=== PATIENT | female | born 1995 | race Caucasian/White ===

== ENCOUNTER 2016-03-30 21:30 | Observation (INO) ==
[2016-03-30 22:52] LABS: Bilirubin,Urine Negative (Negative); Blood,Urine Negative (Negative); Clarity,Urine Clear (Clear); Color,Urine Yellow (Yellow); Glucose,Urine (UA) Normal (Normal); Ketones,Urine Negative (Negative); Leukocyte Esterase,Urine Negative (Negative); Nitrite,Urine Negative (Negative); Protein,Urine 30 mg/dL (Neg-Trace); Specific Gravity,Urine > 1.030 (1.010-1.025); Urobilinogen,Urine Normal (Normal)
[2016-03-30 22:53] LABS: Bacteria,Urine Many per hpf (None-Few); Hyaline Casts,Urine Few per lpf (None-Few); RBC,Urine 0-3 per hpf (0-3); Squamous Epithelial Cell,Urine Many per lpf (None-Few)
--- NOTE | 2016-03-31 06:10 | OB/GYN Progress Note ---
Date of Encounter: 03/31/16 Time of Encounter: 06:07 (Triage by RN) - Assessment and Plan (1) 20 weeks gestation of Status: Acute (2) RUQ pain Status: Acute Objective - Vital Signs Vital Signs: Intake and Output 03/30/16 03/30/16 03/31/16 15:59 23:59 07:59 Other: Weight 69.853 kg - Labs Labs: Abnormal lab results Ur Specific [place] > 1.030 (1.010-1.025) H 03/30/16 21:47 Urine Protein 30 mg/dL (Neg-Trace) H 03/30/16 21:47 Urine Microscopic WBC 5-15 per hpf (0-3) H 03/30/16 21:47 Ur Squamous Epith Cells Many per lpf (None-Few) H 03/30/16 21:47 Urine Bacteria Many per hpf (None-Few) H 03/30/16 21:47 Ur Culture Indicated? YES (NO) A 03/30/16 21:47
== END 2016-03-30 23:15 | disposition short-term general hospital (02) ==
LOC: 1NENULAB

== ENCOUNTER 2016-06-29 23:13 | Observation (INO) ==
--- NOTE | 2016-06-29 23:56 | Discharge Summary ---
Date of Encounter: 06/30/16 Time of Encounter: 23:55 - Discharge Diagnosis (1) 34 weeks gestation of Priority: Secondary Status: Acute (2) Gastroenteritis Priority: Primary Status: Suspected Comments: The patient left against medical advise prior to being evaluated. (3) RUQ pain Priority: Secondary Status: Suspected Comments: Patient left against medical advise prior to being evaluated. - Discharge Medications Home Medications: Pnv with Ca,No.72/Iron,Carb/FA [ Plus Iron Tablet] 1 each PO DAILY #90 tablet 12/18/15 [Rx] Allergies/Adverse Reactions: Allergies No Known Allergies Allergy (Verified 06/29/16 23:42) Date of admission: 06/29/16 23:13 - Patient Status Disposition: Left Against Medical Advice Condition: Undetermined Functional capacity at discharge: independent ambulation Overall status at discharge: patient is not back to baseline - Discharge Instructions - Diet and Activity Activity: increase activity as tolerated Diet: advance to your usual diet Hospital Course PRODUCT SAFETY OFFICER Time Attestation: Total time spent providing and/or coordinating discharge services: Exam - Constitutional General appearance IM: A&O X 3 - Respiratory Respiratory exam: Present: CTAB - Cardiovascular Cardiovascular exam IM: Present: RRR - GI/Abdominal GI/Abdominal exam IM: normal bowel sounds, soft - Rectal Rectal exam: deferred - Attending Attestation can dsouza md facog
[2016-06-29] MEDS ORDERED: Ondansetron 4 MG/2 ML VIAL IVP ONE (23:57)
[2016-06-29] MEDS ORDERED: Ringers Solution, Lactated 500 ML IVC ONE (23:58)
== END 2016-06-30 00:23 | disposition left against medical advice (07) ==
LOC: 1NENULAB
PROVIDERS: ADMIT Obstetrics & Gynecology; ATTEND Obstetrics & Gynecology

== ENCOUNTER → 2016-07-26 18:20 | Observation (INO) ==
--- NOTE | 2016-07-26 17:36 | OB/GYN History & Physical ---
Date of Encounter: 07/26/16 Time of Encounter: 17:20 Assessment and Plan (1) 37 weeks gestation of Current visit: Yes Status: Acute Presents with contractions 10 minutes apart. Had small amount of clear discharge. Non-bloody. Non-purulent. Last seen in OB clinic on 07/24/16 and was 2-3cm dilated at that time. No cervical change since last visit x2 exams today. NST reactive Discharge home with precautions. (2) False labor Current visit: Yes Status: Acute (3) NST (non-stress test) reactive Current visit: Yes Status: Acute History of Present Illness Chief complaint: Pre term labor HPI: Ms. Grimaldo is a 20 year old female at 37 weeks 5 days presents for contractions. She states she has been having contractions that are 10 minutes apart and had a small amount of clear discharge, approximately one-two teaspoons. She states she is having nausea, but not had any emesis. She denies any RUQ abdominal pain, change in vision/blurry vision, sob, cp, vaginal bleeding. Good FM. Her has been complicated by anemia of the third trimester for which she is taking oral iron pills, insufficient weight gain during third trimester, and family history of cleft palate. She is GBS negative, Hep B surface antigen nonreactive, HIV nonreactive, Treponema negative, Rubella IgG positive, Varicella-Zoster IgG positive. Past Med Surg Social Fam HX - Past Medical History Medical history: no medical history Psychiatric history: anxiety, depression - Past Surgical History Surgical History: cholecystectomy - Social History Smoking Status: Never smoker Smokeless Tobacco Status: No Alcohol use: none Drug use: none - Family History Mother History Unknown: Yes Living Status: Still Living Hx Family Cardiac Disorders: Yes (HTN) Hx Family Respiratory Disorders: No Hx Family Cancer: No Hx Family GI Disorders: No Hx Family Endocrine Disorder: Yes (Diabetic) Hx Family Neuromuscular Disorders: No Hx Family Neurologic Disorders: No Hx Family HEENT Disorders: No Hx Family Autoimmune Disorders: No Obstetrical History - Pregnancies : 1 Medications and Allergies Pnv with Ca,No.72/Iron,Carb/FA [ Plus Iron Tablet] 1 each PO DAILY #90 tablet 12/18/15 [Rx] Allergies No Known Allergies Allergy (Verified 06/29/16 23:42) Review of System OB All systems PM: reviewed and no additional remarkable complaints except as stated Exam - Constitutional Constitutional: well developed, well nourished, no acute distress, average body habitus - HEENT HEENT: Normocephaly, Mucus Membranes Moist - Neck Neck exam: normal inspection, supple, trachea midline - Lungs Respiratory exam: CTAB - Cardiovascular Cardiovascular exam: RRR, +S1, +S2 - Abdomen Abdomen: Present: bowel sounds normal, gravid, non tender - Extremities Extremities exam: normal capillary refill, normal inspection - Cervix Dilation: 3 (2-3) Effacement: 70 Station: 0 - Anus/Rectum Anus/Rectum: Present: normal perianal skin Results All other labs normal. - VTE Reasons for not Prescribing Prophylaxis: Treatment not Indicated - Low risk for VTE
== END | disposition home or self-care (01) ==
LOC: 1NENULAB
PROVIDERS: ADMIT Obstetrics & Gynecology; ATTEND Obstetrics & Gynecology

== ENCOUNTER 2016-08-09 03:52 | Inpatient (IN) ==
[2016-08-09] MEDS ORDERED: Famotidine 20 MG/2 ML VIAL IVP PRN (04:21)
[2016-08-09] MEDS ORDERED: Metoclopramide 10 MG/2 ML VIAL IVP PRN (04:21)
[2016-08-09] MEDS ORDERED: Naloxone 0.4 MG/ML INJ IVP PRN (04:21)
[2016-08-09] MEDS ORDERED: miSOPROStol 100 MCG TABLET PO PRN (04:21)
[2016-08-09] MEDS ORDERED: Ringers Solution, Lactated 1,000 ML IVC SCH (04:30)
[2016-08-09 04:34] LABS: Basophils # 0.1 K/mcL (0.0-0.2); Basophils % 0.7 %; Eosinophils # 0.3 K/mcL (0.0-0.6); Eosinophils % 3.9 %; Hematocrit 31.8 % (35.3-44.9); Hemoglobin 10.2 g/dL (11.5-15.4); Immature Granulocytes % 5.8 % (0-4); Lymphocytes # 1.7 K/mcL (0.6-4.6); Lymphocytes % 20.6 %; Mean Corpuscular HGB Conc 32.1 g/dL (31.6-35.5); Mean Corpuscular Hemoglobin 26.4 pg (28.0-33.3); Mean Corpuscular Volume 82.2 fL (83.0-100.0); Mean Platelet Volume 9.3 fL (9.4-12.4); Monocytes % 12.2 %; Neutrophils # 4.8 K/mcL (1.6-8.9); Platelet Count 138 K/mcL (140-400); Red Blood Count 3.87 M/mcL (3.82-4.97); Red Cell Distribution Width 17.1 % (11.5-14.5); Segmented Neutrophils % 56.8 %
[2016-08-09 05:32] LABS: Platelet Estimate Normal (Normal)
--- NOTE | 2016-08-09 09:32 | OB/GYN History & Physical ---
Date of Encounter: 08/09/16 Time of Encounter: 09:29 Assessment and Plan (1) 39 weeks gestation of Current visit: Yes Status: Acute Admitted for IOL cytotec 50mcg PO at 0445 History of Present Illness Chief complaint: Scheduled IOL 39w4d for Pschological factors HPI: Ms. Grimaldo is a 20 year old female at 39w4d presents to labor and delivery for Induction of labor for Dr. Larios. Patient had a jeronimo score of 9 on induction consent. Patient denies any questions or concerns. Patient reports +FM , denies LOF or VB. Blood type: B Negative, Rubella: Immune, Hep B: Nonreactive , GBS: Negative. Past Med Surg Social Fam HX - Past Medical History Source: patient Medical history: other (compression fractures in back) Psychiatric history: anxiety, depression - Past Surgical History Surgical History: cholecystectomy - Social History Smoking Status: Former smoker Smokeless Tobacco Status: No Alcohol use: none Drug use: none - Family History Mother Adopted: No Family Member Ethnicity: Non- Living Status: Still Living Hx Family Cardiac Disorders: Yes Hx Family Respiratory Disorders: No Hx Family Cancer: No Hx Family GI Disorders: No Hx Family Genitourinary Disorders: No Hx Family Endocrine Disorder: Yes Hx Family Musculoskeletal Disorders: No Hx Family Neuromuscular Disorders: No Hx Family Neurologic Disorders: No Hx Family HEENT Disorders: No Hx Family Autoimmune Disorders: No Hx Family Reproductive Disorders: No Hx Family Psychosocial Disorders: No Hx Family Medical Disorders: No Obstetrical History - Pregnancies : 1 Para: 0 Term: 0 : 0 Ab's: 0 Livin Medications and Allergies Pnv with Ca,No.72/Iron,Carb/FA [ Plus Iron Tablet] 1 each PO DAILY #90 tablet 12/18/15 [Rx] Allergies No Known Allergies Allergy (Verified 06/29/16 23:42) Review of System OB - Constitutional Constitutional ROS IM: no chills, no fever(s), no headache(s) - Cardiovascular Cardiovascular: no chest pain, no dyspnea, no palpitations, no syncope - Respiratory Respiratory: no cough - Gastrointestinal Gastrointestinal: no constipation, no diarrhea, no heartburn, no nausea, no vomiting - Genitourinary Genitourinary: no abnormal vaginal bleeding, no dysuria, no flank pain, no urinary frequency, no urinary incontinence Exam - Constitutional Constitutional: well developed, well nourished, no acute distress, average body habitus - HEENT HEENT: Normocephaly, Mucus Membranes Moist - Neck Neck exam: full ROM, supple - Lungs Respiratory exam: CTAB - Cardiovascular Cardiovascular exam: RRR, +S1, +S2 - Abdomen Abdomen: Present: bowel sounds normal, gravid, non tender - Extremities Extremities exam: full ROM, normal capillary refill, normal inspection Deep Tendon Reflex Grade: 2+ Normal - Comments Comments: FHR 135 bpm moderate variability +15x15 accels no decels noted. Contractions every 3-4 min. Cat. 1 tracing. Results Result Diagrams: 08/09/16 04:15 Abnormal lab results Hgb 10.2 g/dL (11.5-15.4) L 08/09/16 04:15 Hct 31.8 % (35.3-44.9) L 08/09/16 04:15 MCV 82.2 fL (83.0-100.0) L 08/09/16 04:15 MCH 26.4 pg (28.0-33.3) L 08/09/16 04:15 RDW 17.1 % (11.5-14.5) H 08/09/16 04:15 Plt Count 138 K/mcL (140-400) L 08/09/16 04:15 MPV 9.3 fL (9.4-12.4) L 08/09/16 04:15 Immature Gran % 5.8 % (0-4) H 08/09/16 04:15 All other labs normal. - VTE Reasons for not Prescribing Prophylaxis: Treatment not Indicated - Low risk for VTE
[2016-08-09] MEDS ORDERED: miSOPROStol 25 MCG TABLET PO ONE (10:17)
[2016-08-09] MEDS ORDERED: Ondansetron 4 MG/2 ML VIAL IVP PRN (10:44)
[2016-08-09] MEDS ORDERED: EPHEDrine 50 MG/ML VIAL IVP PRN (10:44)
[2016-08-09] MEDS ORDERED: *HR* FentaNYL (PF) 100 MCG/2 ML VIAL EP ONE (10:44)
[2016-08-09] MEDS ORDERED: Bupivacaine-MPF 0.25% 10 ML VIAL EP ONE (10:44)
[2016-08-09] MEDS ORDERED: Epidural Premix (fent/bupiv) 110 ML EP SCH (10:45)
--- NOTE | 2016-08-09 10:50 | Anesthesia Evaluation PreOp ---
Date of Encounter: 08/09/16 Time of Encounter: 10:46 - Past History Planned Operation: PEDRO LUIS Cardiac History: Denies any Significant Hx Pulmonary History: Denies Any Significant HX SANITATION ENGINEER History: Other (Thoracic compression fractures from a fall 7 years ago, mild scoliosis) Other Medical History: Other (iron deficiency anemia) Anesthesia History: No Prior Anesthetic Complications, Past Anesthesia (lap tee) : Yes Alcohol Use: none Drug use: none Medications and Allergies Pnv with Ca,No.72/Iron,Carb/FA [ Plus Iron Tablet] 1 each PO DAILY #90 tablet 12/18/15 [Rx] Allergies No Known Allergies Allergy (Verified 06/29/16 23:42) - Meds/Allergy Pre-op Review Medications Reviewed: Yes Allergies Reviewed: Yes Beta Blockers on Current Med List: No Anesthesia Results - Labs 08/09/16 04:15 Anesthesia Exam BP 120/73 P 90 T 98.2 Height: 6'0" Weight: 78.7kg NPO (# of Hours): 3 Pain Scale: 1 Pain Scale Used: Numeric (1 - 10) - HEENT Pupil (Motor): Pupils equal Mallampati: II Teeth: Normal Oral Opening: Greater than 3 - SANITATION ENGINEER SANITATION ENGINEER Motor: Normal RUE, Normal LUE, Normal RLE, Normal LLE, Normal Face SANITATION ENGINEER Sensory: Normal: RUE, LUE, RLE, LLE, Face - Cardiac Rhythm: Regular Murmur: None JVD: No Carotid Bruit: No - Pulmonary Breath Sounds: bilateral Clear Respiratory Effort: Symmetrical Anesthesia Assess/Plan ASA Score: 2 Modified Mar[place] Scale for Level of Consciousness: Cooperative, oriented, and tranquil Anesthetic Plan: Regional Autologous Blood: No Monitoring Plan: Standard Monitors Recovery Plan: Other
--- NOTE | 2016-08-09 14:29 | OB Labor Progress Note ---
Date of Encounter: 08/09/16 Time of Encounter: 14:27 Labor Progress Note - Subjective Subjective: Patient resting in bed. Discussed POC with patient. Patient denies any questions or concerns. - Cervix Cervix: 2.5/80/-1 - Heart Tones Heart Tones: 135 bpm moderate variability +15x15 accels no decels noted. Cat. 1 tracing. - [place]: 2-3 min apart - Interventions Interventions: SVE, AROM moderate amount of clear fluid. Pericare provided. - Plan Plan: Continue labor management. Nubain or epidural for pain management when patient desires.
--- NOTE | 2016-08-09 17:21 | OB Labor Progress Note ---
Date of Encounter: 08/09/16 Time of Encounter: 17:19 Labor Progress Note - Subjective Subjective: Patient in bed breathing through contractions. Discussed POC with patient. Patient denies any questions or concerns. - Cervix Cervix: 3/90/-1 - Heart Tones Heart Tones: 140 bpm moderate variability + 15x15 accels variable noted. - [place]: 2.5-3.5 min apart - Interventions Interventions: SVE, IUPC placed without difficulty. - Plan Plan: Continue labor management. Will start Pitocin per protocol if needed for effective labor pattern.
[2016-08-09] MEDS ORDERED: *HR* Nalbuphine 20 MG/ML AMPUL IVP PRN (17:45)
[2016-08-09] MEDS ORDERED: Oxytocin 20 units/ LR 1000 mL 20 UNIT/1,000 ML BAG IVC SCH (17:51)
[2016-08-09] MEDS ORDERED: *HR* FentaNYL (PF) 100 MCG/2 ML VIAL ONE (18:45)
[2016-08-09] MEDS ORDERED: Bupivacaine-MPF 0.25% 10 ML VIAL ONE (18:49)
[2016-08-09] MEDS ORDERED: Epidural Premix (fent/bupiv) 110 ML EP ONE (18:50)
--- NOTE | 2016-08-09 20:40 | Anesthesia Procedures ---
Date of Encounter: 08/09/16 Time of Encounter: 19:45 Procedures: Anesthesia - Epidural/Spinal Patient ID/Chart reviewed: Yes Patient examined: Yes OB Eval: Gestational age: 39 weeks, 4 days OB Eval: : 1 OB Eval: Hx Para: 0 OB Eval: Dilated at (cm): 3 OB Eval: Contractions: Non-stressed pattern Consent Obtained: Yes Supplemental Oxygen: None/Room Air Site Prep: Aseptic Technique, Sterile prep and drape, Povidone-Iodine 1% Patient position: upright Local Anesthetic: Lidocaine 1% Amount of Local Anesthetic used: 3 Touhy Needle Gauge: 18 Touhy Needle Depth (cm): 6 Catheter Depth at Skin (cm): 15 Test Dose (1.5% Lido + Epi): Volume given (mls): 3 Test Dose Result: Negative Loading Dose: Fentanyl (mcg): 100 Loading Dose Administered: Thru Catheter Infusion Med: 0.125% Bupivacaine w/ 2 mcg/ml Fentanyl Infusion Rate (mls/hr): [address]: Tegaderm, Tape Interspace Used: L4-L5 Loss of Resistance (MARIAMA): Yes Blood: No CSF: No Paresthesia: No Procedure: PEDRO LUIS placed in upright position 1st pass without any immediate noted complications. VSS throughout Vitals + FHT's: 1944 BP 125/81 P 81 R 16 2006 BP 105/60 P70 \ FHT 130s
--- NOTE | 2016-08-09 20:41 | OB Labor Progress Note ---
Date of Encounter: 08/09/16 Time of Encounter: 20:39 Labor Progress Note - Subjective Subjective: Patient comfortable after epidural. - Vital Signs Vital Signs: Afebrile, vital signs stable - Cervix Cervix: 3-4/90/0, vertex. Anterior - Heart Tones Heart Tones: 130s, category 1 - [place]: Contractions 4-6 minutes on 2 milliunits of pit 40-60 mmHg - Interventions Interventions: 39 week IUP for induction of labor. Status post epidural. Anticipate vaginal delivery - Plan Plan: Continue augmentation with Pitocin, López placed
[2016-08-09] MEDS ORDERED: *HR* Ropivacaine/PF 0.2% 10 ML AMPUL ONE (23:29)
[2016-08-09] MEDS ORDERED: ROPIVACAINE HCL/PF 0.5% 30 ML VIAL ONE (23:30)
--- NOTE | 2016-08-09 23:40 | Anesthesia Progress Note ---
Date of Encounter: 08/09/16 Time of Encounter: 23:54 Anesthesia Note - Note Note: 08/09/16 23:54 Pt experiencing hotspot of pain in right lower abdomen, with comfort in all other locations. Ropivicaine 0.5% 7ml bolus administered. Catheter pulled back from 15cm to 13cm at skin. VSS post bolus. BP 117.73 P 75. Will follow up. Reason for Cancellation: Other
[2016-08-10] MEDS ORDERED: Epidural Premix (fent/bupiv) 110 ML EP ONE (01:19)
--- NOTE | 2016-08-10 05:29 | OB/GYN Procedure Note ---
Delivery - Delivery Date: 08/10/16 Provider: Malu Larios Intrapartum events: none Delivery induction: AROM, oxytocin, misoprostol Delivery augmentation: rupture of membranes, pitocin Delivery monitor: external FHT, external uterine, internal uterine Anesthesia: epidural Estimated Blood Loss: 200 - Infant (s) A Delivery Date: 08/10/16 Delivery Time: 05:00 Presentation: vertex Position: MELISSA Route of delivery: Gender: Male Viability: Viable Pounds: 7 Ounces: 12 Weight Gram: 3.51 kg at 1 minute: 8 at 5 mins: 9 Shoulder Dystocia: not encountered Specimens collected: cord blood Placenta: spontaneous, uterine exploration Cord: 3 umbilical vessels - Repair Episiotomy: none Laceration Description: Perineal - 1st Degree, Labial (Bilateral) - Complications Delivery complications: none Delivery comments: The patient was complete and pushing with epidural anesthesia with a spontaneous vaginal delivery in the MELISSA position of a vigorous male infant weighing 7 lbs. 12 oz. with Apgars of 8 at 1 minute and 9 at 5 minutes. was placed on the maternal abdomen. The cord was clamped and cut after pulsations ceased. Cord blood obtained. The placenta was delivered spontaneous and intact. Uterus was explored and there were no retained products of conception. A straight catheter was used to drain the bladder of 100 mL clear urine. Bilateral labial lacerations were repaired with 4-0 Monocryl in a running nonlocking fashion. There was a 1 cm first-degree perineal laceration which was not hemostatic and was repaired with 4-0 Monocryl in the usual fashion. Estimated blood loss 200 mL, complications none - Disposition Mom disposition: stable in LDR [place] disposition: stable in LDR
[2016-08-10] MEDS ORDERED: *HR* HYDROcodone/Acet 5/325 mg TABLET PO PRN (08:16)
[2016-08-10] MEDS ORDERED: Measles/Mumps/Rubella Vacc 0.5 ML VIAL SQ PRN (08:16)
[2016-08-10] MEDS ORDERED: Oxytocin 20 units/ LR 1000 mL 20 UNIT/1,000 ML BAG IVC SCH (08:16)
[2016-08-10] MEDS ORDERED: Rho Immune Globulin 1,500 UNIT SYRINGE IM PRN (08:16)
[2016-08-10] MEDS: Prenatal Vit/FA 1 EACH TABLET PO SCH (09:50)
[2016-08-10] MEDS: Ibuprofen 600 MG TABLET PO PRN ×2 (11:52→19:45)
[2016-08-11] MEDS: Ibuprofen 600 MG TABLET PO PRN ×2 (01:16→08:57)
[2016-08-11 06:45] LABS: Basophils % 0.3 %; Eosinophils # 0.3 K/mcL (0.0-0.6); Eosinophils % 2.6 %; Hematocrit 25.9 % (35.3-44.9); Immature Granulocytes % 2.9 % (0-4); Lymphocytes # 2.2 K/mcL (0.6-4.6); Lymphocytes % 22.1 %; Mean Corpuscular HGB Conc 31.7 g/dL (31.6-35.5); Mean Corpuscular Hemoglobin 26.5 pg (28.0-33.3); Mean Corpuscular Volume 83.8 fL (83.0-100.0); Mean Platelet Volume 9.2 fL (9.4-12.4); Neutrophils # 6.3 K/mcL (1.6-8.9); Platelet Count 112 K/mcL (140-400); Red Blood Count 3.09 M/mcL (3.82-4.97); Segmented Neutrophils % 62.1 %
[2016-08-11 06:47] LABS: Hemoglobin 8.2 g/dL (11.5-15.4)
[2016-08-11 08:33] VITALS: BP 102/66
[2016-08-11] MEDS: Prenatal Vit/FA 1 EACH TABLET PO SCH (08:57)
--- NOTE | 2016-08-11 11:25 | Discharge Summary ---
Date of Encounter: 08/11/16 Time of Encounter: 11:20 - Discharge Diagnosis (1) Vaginal delivery Priority: Primary Status: Acute Comments: Doing well day 1. Patient requesting discharge - Discharge Medications Prescriptions: Ibuprofen [Motrin] 600 mg PO Q6HR PRN #30 tablet PRN Reason: Mild Pain Medroxyprogesterone Acetate [Depo-Provera] 150 mg IM NOW #1 mls Home Medications: Pnv with Ca,No.72/Iron,Carb/FA [ Plus Iron Tablet] 1 each PO DAILY #90 tablet 12/18/15 [Rx] Ferrous Sulfate 325 mg PO DAILY tablet 08/11/16 [Rx] Ibuprofen [Motrin] 600 mg PO Q6HR PRN #30 tablet 08/11/16 [Rx] Medroxyprogesterone Acetate [Depo-Provera] 150 mg IM NOW #1 mls 08/11/16 [Rx] Allergies/Adverse Reactions: Allergies No Known Allergies Allergy (Verified 06/29/16 23:42) Data Procedures and tests throughout hospitalization: Laboratory Tests 08/09/16 08/10/16 08/10/16 04:15 05:29 05:29 WBC 8.4 RBC 3.87 Hgb 10.2 L Hct 31.8 L MCV 82.2 L MCH 26.4 L MCHC 32.1 RDW 17.1 H Plt Count 138 L MPV 9.3 L Immature Gran % 5.8 H Seg Neutrophils % 56.8 Lymphocytes % 20.6 Monocytes % 12.2 Eosinophils % 3.9 Basophils % 0.7 Neutrophils # 4.8 Lymphocytes # 1.7 Monocytes # 1.0 Eosinophils # 0.3 Basophils # 0.1 Platelet Estimate Normal Volume Blood 0 Screen TNP Baby's Blood Type B RH POSITIVE Mother's Blood Type B RH NEGATIVE Rhogam Indicated YES Rhogam Req for Mother 1 08/11/16 06:29 WBC 10.1 RBC 3.09 L Hgb 8.2 L D Hct 25.9 L MCV 83.8 MCH 26.5 L MCHC 31.7 RDW 18.0 H Plt Count 112 L MPV 9.2 L Immature Gran % 2.9 Seg Neutrophils % 62.1 Lymphocytes % 22.1 Monocytes % 10.0 Eosinophils % 2.6 Basophils % 0.3 Neutrophils # 6.3 Lymphocytes # 2.2 Monocytes # 1.0 Eosinophils # 0.3 Basophils # 0.0 Platelet Estimate Volume Blood Screen Baby's Blood Type Mother's Blood Type Rhogam Indicated Rhogam Req for Mother Labs on day of discharge: Labs from last 24 hours 08/11/16 08/10/16 08/10/16 06:29 05:29 05:29 WBC 10.1 RBC 3.09 L Hgb 8.2 L D Hct 25.9 L MCV 83.8 MCH 26.5 L MCHC 31.7 RDW 18.0 H Plt Count 112 L MPV 9.2 L Immature Gran % 2.9 Seg Neutrophils % 62.1 Lymphocytes % 22.1 Monocytes % 10.0 Eosinophils % 2.6 Basophils % 0.3 Neutrophils # 6.3 Lymphocytes # 2.2 Monocytes # 1.0 Eosinophils # 0.3 Basophils # 0.0 Volume Blood 0 Screen TNP Baby's Blood Type B RH POSITIVE Mother's Blood Type B RH NEGATIVE Rhogam Indicated YES Rhogam Req for Mother 1 Date of admission: 08/09/16 03:52 Primary care physician: Zaria Velasquez CNP Consults: 08/10/16 08:16 Consult to [facility] Hand [CONS] Routine Comment: Vaginal delivery, consult needed Discharging clinician: Malu Larios Anticipated date of discharge: 08/11/16 - Patient Status Disposition: Home, Self-Care Condition: Good Functional capacity at discharge: independent ambulation Overall status at discharge: patient is progressing back to baseline - Discharge Instructions Follow Up With: Zaria Velasquez CNP [Primary Care Provider] - Additional Instructions: Perineal Care: Always wipe front to back Change your pad frequently Use your fabby bottle with warm water and spray front to back Do not douche, use tampons, have sexual intercourse or put anything in your vagina for 4-6 weeks after delivery Bleeding: Vaginal bleeding can last up to 6 weeks Your menstrual period may return as early as 6 weeks after you are discharged from the hospital Malinda/Stitches Care: Vaginal Delivery Vaginal stitches will dissolve within 4-6 weeks Follow perineal care instructions Care Stitches will dissolve on their own If you have malinda, they will need to be removed in the doctors office within 5-7 days. You may shower with stitches or malinda Drip plan or soapy water over the incision to clean. Pat dry gently with a clean towel. Make sure you completely dry under the skin folds DO NOT USE powders, lotions, rubbing alcohol or hydrogen peroxide on or around your incision. This will slow your wound healing It is normal to have soreness, burning, tingling, itchiness and/or numbness as your incision heals Activity: Rest frequently Do not lift anything heavier than a gallon of milk, up to 10-15 pounds No driving for 1-2 weeks for Vaginal delivery No driving for 2-4 weeks for delivery Take stairs slowly, one at a time Gradually increase your daily activity until you are back to your normal routine Do not exercise until you have had your follow-up appointment Bathing: Take a shower daily Do not take a tub bath for the first 4 weeks Diet: Drink plenty of water and fruit juices Eat a well-balanced diet with foods high in fiber such as fruits and vegetables Depression: Your hormones have a major impact on your feelings and emotions. Hormone imbalance may cause changes in your mood, creating unfamiliar thoughts and actions. Support is available to help you understand and cope with these feelings and mood changes. If you answer yes to any of the following questions, please call your health care provider: Are you having trouble sleeping? Are you feeling isolated? Have you lost your appetite? Are you having thoughts of hurting yourself or others? WARNING SIGNS: Heavy bleeding from the vagina (blood is bright red and soaks a sanitary pad in an hour or less.) Passing a blood clot larger than your fist Discharge from the vagina that has a bad odor Temperature over 100.4 F, or if you feel cold and have chills An episiotomy site that is warm, swollen or oozing. Use a mirror if needed Urination (pee) that is painful, very red and swollen or leaking fluid An incision that is painful, very red and swollen and leaking fluid An incision that has come open Breasts that are painful or full with flu like symptoms Redness, warmth or swelling in the calf of your leg Trouble breathing, dizziness, visual disturbance or faintness *Notify your health care provider immediately or go to the nearest Emergency Room if you experience any of the above signs.* To contact the nurses station 24 hours a day, For non-urgent, routine questions, please call the office at - Diet and Activity Activity: increase activity as tolerated, resume usual activities as tolerated Diet: regular diet Hospital Course Procedures: Reason for admission: induction of labor Delivery: Episiotomy: none Laceration: 1st degree Other procedures: none complications: none Discharge diagnosis: IUP at term delivered [place] baby: male Hospital course: The patient is doing well . She is breast-feeding. She is requesting discharge today. She has minimal lochia. Hemoglobin stable. She has iron at home that she takes twice daily. Time Attestation: Total time spent providing and/or coordinating discharge services: Time Spent: Less than 30 minutes Exam - Constitutional Vitals: Temp Pulse Resp BP Pulse Ox 98.2 F 89 16 102/66 98 08/11/16 08:32 08/11/16 08:32 08/11/16 08:32 08/11/16 08:32 08/11/16 08:32 General appearance IM: cooperative, A&O X 3, pleasant, no acute distress - Respiratory Respiratory exam: Absent: respiratory distress - Cardiovascular Cardiovascular exam IM: Absent: irregular rhythm - GI/Abdominal GI/Abdominal exam IM: normal bowel sounds, soft, no peritoneal signs - Rectal Rectal exam: deferred - Uterine Tone: Firm Uterus Position: 2 Fingers Below Umbilicus - Extremities Exam Extremities exam IM: Present: normal inspection, warm. Absent: calf tenderness - Neurological Exam Neurological exam: alert, no focal deficits
== END 2016-08-11 12:33 | disposition home or self-care (01) | DRG 560 ==
LOC: 1NENULAB 03:52 → 1NENUOBS 08-10 07:57
PROVIDERS: ADMIT Obstetrics & Gynecology; ATTEND Obstetrics & Gynecology